=== PATIENT | female | born 1990 | race Two or more races ===

== ENCOUNTER 2019-01-02 19:46 | Emergency (ER) | payer OTHER ==
[2019-01-02 19:52] VITALS: BP 110/68; PULSE 92; TEMP 98.3; BMI 29.9
[2019-01-02] MEDS ORDERED: DIPHTH,PERTUSS(ACELL),TET 0.5 ML DISP.SYRIN IM ONE ×2 (20:30→20:33)
--- NOTE | 2019-01-02 20:40 | PDOC ---
History of Present Illness - General Chief Complaint: Bite Stated Complaint: DOG BITE Time Seen by Provider: 01/02/19 20:24 History Source: Patient Exam Limitations: No Limitations - History of Present Illness Initial Comments: 01/02/19 20:35 HISTORY OF PRESENT ILLNESS: This is a 28-year-old woman denies medical history of presents emergency department for evaluation of dog bite to her right thumb which sustains earlier this afternoon. Patient reports somewhere with the dog and spoke with the dog's cvt rn states at that dog is up-to-date with vaccinations. Patient is able to contact the dog's cvt rn to monitor for possible rabid behavior. Patient is unsure of her last tetanus shot. No recent travel or sick contacts. PAST MEDICAL HISTORY: Denies past medical history SURGICAL HISTORY: Denies ALLERGIES: PCN REVIEW OF SYSTEMS General/Constitutional: Denies fever or chills. Denies weakness, weight change. HEENT: Denies change in vision. Denies ear pain or discharge. Denies sore throat. Cardiovascular: Denies chest pain or shortness of breath. Respiratory: Denies cough, wheezing, or hemoptysis. Gastrointestinal: Denies nausea, vomiting, diarrhea or constipation. Denies rectal bleeding. Genitourinary: Denies dysuria, frequency, or change in urination. Musculoskeletal: Denies joint or muscle swelling or pain. Denies neck or back pain. Skin and breasts: see HPI Neurologic: Denies headache, vertigo, loss of consciousness, or loss of sensation. Psychiatric: Denies depression or anxiety. Endocrine: Denies increased thirst. Denies abnormal weight change. Hematologic/Lymphatic: Denies anemia, easy bleeding, or history of blood clots. Allergic/Immunologic: Denies hives or skin allergy. Denies latex allergy. PHYSICAL EXAM General Appearance: Well-appearing, appropriately dressed. No apparent distress , no intoxication. Gastrointestinal/Abdominal: Normal bowel sounds. Abdomen soft, non-distended. No tenderness or rebound tenderness. No organomegaly, pulsatile mass, guarding, hernia, hepatomegaly, splenomegaly. Lymphatic: No adenopathy, tenderness. Musculoskeletal/Extremities: Normal inspection. FROM of all extremities, normal capillary refill. Pelvis Stable. No CVA tenderness. No tenderness to extremities, pedal edema, swelling, erythema or deformity. Integumentary: Appropriate color, dry, warm. No cyanosis, erythema, jaundice or rash. Punctate wounds present to the dorsum of the right thumb with abrasion present to the palmar aspect of the left thumb over the interphalangeal joint. Neurologic: self contained behavior unit teacher II-XII intact. Fully oriented, alert. Appropriate mood/affect. Motor strength 5/5. No appreciable EOM palsy, facial droop or sensory deficit. Past History - Past Medical History Allergies/Adverse Reactions: Allergies Allergy/AdvReac Type Severity Reaction Status Date / Time amoxicillin Allergy Verified 01/02/19 19:50 Penicillins Allergy Verified 01/02/19 19:50 Home Medications: Ambulatory Orders Doxycycline Hyclate [Vibramycin -] 100 mg PO BID #14 cap 01/02/19 Ondansetron [Zofran *Odt*] 4 mg SL TID #21 od.tablet 01/02/19 Anemia: Yes COPD: No - Suicide/Smoking/Psychosocial Hx Smoking History: Never smoked *Physical Exam - Vital Signs Last Vital Signs Temp Pulse Resp BP Pulse Ox 98.3 F 92 H 18 110/68 98 01/02/19 19:50 01/02/19 19:50 01/02/19 19:50 01/02/19 19:50 01/02/19 19:50 Medical Decision Making - Medical Decision Making 01/02/19 20:33 A/P: 28-year-old woman for evaluation status post dog bite this afternoon Patient states that dog is up-to-date with vaccinations Punctate wounds present to the dorsum of the right thumb Abrasion presents to the palmar surface of the right thumb Tetanus booster Discharge home with prescription for doxycycline 100 mg to be taken twice a day for the next 7 days Prescription for Zofran 4 mg sublingual 3 times a day for 7 days Portions of this note have been documented using voice recognition software. As a result, errors may occur in the petroleum engineering teacher process. Effort has been made to correct all grammatical and petroleum engineering teacher error, but some may have been missed. *DC/Admit/Observation/Transfer Diagnosis at time of Disposition: Dog bite Qualifiers: Encounter type: initial encounter Qualified Code(s): W54.0XXA - Bitten by dog, initial encounter - Discharge Dispostion Disposition: HOME Condition at time of disposition: Stable Decision to Admit order: No - Prescriptions Prescriptions: Doxycycline Hyclate [Vibramycin -] 100 mg PO BID #14 cap Ondansetron [Zofran *Odt*] 4 mg SL TID #21 od.tablet - Referrals Referrals: Richard Painting MD [Primary Care Provider] - - Patient Instructions Printed Discharge Instructions: How to Care for a Domestic Animal Bite Additional Instructions: You were bitten by a dog today. Because you're able to contact the dog's cvt rn rabies treatment is not indicated at this time. If the dog show signs of rabies, return to the emergency department immediately for treatment. Take doxycycline 100 mg twice a day for the next 7 days. Apply bacitracin to wounds twice a day after washing with antibacterial soap. Your tetanus has been updated today. Return to the emergency department for any discharge or drainage from the wounds , red streaking up your leg from the wounds or for any other concerns. Thank you very much for choosing us to provide your emergent health care needs. - Post Discharge Activity
== END 2019-01-02 20:43 | disposition home or self-care (01) ==
LOC: JERFT 19:46
PROC: 3E0234Z Introduction of Serum, Toxoid and Vaccine into Muscle, Percutaneous Approach (ICD-10-PCS; principal; 2019-01-02)
DX: S61.051A Open bite of right thumb without damage to nail, initial encounter (principal); W54.0XXA Bitten by dog, initial encounter; Y93.89 Activity, other specified; Y92.89 Other specified places as the place of occurrence of the external cause; Y99.8 Other external cause status
CPT/HCPCS: 90715; 99281-25

== ENCOUNTER 2021-11-06 22:14 | Emergency (ER) | payer OTHER ==
[2021-11-06 22:27] VITALS: BMI 29.9
[2021-11-07] MEDS ORDERED: METOCLOPRAMIDE HCL INJECTION 10 MG/2 ML VIAL IVPB ONE (00:29)
[2021-11-07] MEDS ORDERED: SODIUM CHLORIDE 1,000 ML IV STA (00:30)
[2021-11-07] MEDS ORDERED: ACETAMINOPHEN 1000 MG/100 ML BAG IVPB ONE (00:30)
[2021-11-07 01:19] VITALS: BP 114/70; PULSE 77; RESP 16; TEMP 97.5
[2021-11-07] MEDS ORDERED: ACETAMINOPHEN INJECTION 100 ML IVPB ONE (01:24)
[2021-11-07] MEDS ORDERED: METOCLOPRAMIDE HCL INJECTION 10 MG/2 ML VIAL ONE (01:24)
== END 2021-11-07 02:35 | disposition home or self-care (01) ==
LOC: JER 22:14
PROC: 3E033GC Introduction of Other Therapeutic Substance into Peripheral Vein, Percutaneous Approach (ICD-10-PCS; principal; 2021-11-06)
DX: R51.9 Headache, unspecified (principal)
CPT/HCPCS: 70450-TC; 99285-25